=== PATIENT | male | born 1945 | race Two or more races ===

== ENCOUNTER 2018-07-31 10:02 | Emergency (ER) | payer MEDICARE, OTHER ==
[~2018-07-31] VITALS: Ht 172.7 cm; Wt 68.0 kg
--- NOTE | 2018-07-31 10:36 | NUR ---
PT IS IN ROOM #1A. DR MAXWELL EVALUATED THE PT.
--- NOTE | 2018-07-31 11:15 | NUR ---
PT WAS D/C TO HOME. D/C INSTRUCTIONS GIVEN TO THE PT AND TO HIS SON.
[2018-07-31 11:16] VITALS: BP 145/81
== END 2018-07-31 11:17 | disposition home or self-care (01) ==
LOC: ER 10:02
DX: E11.9 Type 2 diabetes mellitus without complications (principal); Z76.0 Encounter for issue of repeat prescription
CPT/HCPCS: A4663